=== PATIENT | female | born 1960 ===

== ENCOUNTER 2018-03-21 06:24 | Day surgery (SDC) | payer MEDICAID ==
[2018-03-21] MEDS ORDERED: Lactated Ringer's 1,000 ML IV ONE (08:50)
[2018-03-21] MEDS ORDERED: Propofol 10 mg/ml Inj (20 ML) ONE (08:53)
[2018-03-21 10:03] VITALS: TEMP 97.1; O2SAT 97
[2018-03-21 10:24] VITALS: BP 113/79; PULSE 81; RESP 14
== END 2018-03-21 10:21 | disposition home or self-care (01) ==
LOC: C.ENDO 06:24
PROVIDERS: ATTEND Internal Medicine Gastroenterology
DX: K92.1 Melena (principal); K64.1 Second degree hemorrhoids; E11.9 Type 2 diabetes mellitus without complications; I10 Essential (primary) hypertension; E78.5 Hyperlipidemia, unspecified; Z79.84 Long term (current) use of oral hypoglycemic drugs; Z79.82 Long term (current) use of aspirin; Z79.899 Other long term (current) drug therapy
CPT/HCPCS: 45378; 82948; J2704; J7120